=== PATIENT | female | born 1965 ===

== ENCOUNTER 2017-09-18 21:08 | Emergency (ER) | payer MEDICAID ==
[2017-09-18] MEDS ORDERED: Sodium Chloride 0.9% 1,000 ML IV STA (22:00)
--- NOTE | 2017-09-18 22:06 | ED PDOC ---
HPI: General Adult Time Seen by Provider: 09/18/17 21:17 Chief Complaint (Nursing): GI Problem Chief Complaint (Provider): dizziness, vomiting History Per: Patient History/Exam Limitations: no limitations Onset/Duration Of Symptoms: Hrs Current Symptoms Are (Timing): Still Present Additional History Per: Patient Additional Complaint(s): 51 y/o female presents with dizziness and vomiting x 1 day. Patient states she saw her GI doctor Dr. Thayer twice for left-sided abdominal pain>1 month and was found to have C. Diff and was started on Flagyl as of yesterday. Patient states she took 3 tablets yesterday and 2 today and felt the symptoms to be worsening. She was advised to stop medication by GI office and that a different one will be at her pharmacy in am. Denies fever, chest pain, shortness of breath, palpitations, changes in bowel movements, urinary symptoms. Past Medical History Reviewed: Historical Data, Nursing Documentation, Vital Signs Vital Signs: Last Vital Signs Temp 96.7 F L 09/18/17 21:10 Pulse 68 09/18/17 21:10 Resp 18 09/18/17 21:10 BP 151/65 H 09/18/17 21:10 Pulse Ox 100 09/18/17 23:55 - Medical History PMH: Anxiety, Diverticulitis, Gastritis - Surgical History Surgical History: - Family History Family History: States: Unknown Family Hx - Home Medications Home Medications: Ambulatory Orders Medication Instructions Recorded metroNIDAZOLE [Flagyl] 500 mg PO TID #30 tab 06/17/16 Alprazolam [Xanax] 09/18/17 Amitriptyline [Elavil] 10 mg PO 09/18/17 Lamotrigine [Lamictal] 200 mg PO DAILY 09/18/17 Linaclotide [Linzess] 145 mcg PO DAILY 09/18/17 Meloxicam [Mobic] 15 mg PO DAILY 09/18/17 Montelukast [Singulair] 10 mg PO DAILY 09/18/17 Omeprazole [Omeprazole] 20 mg PO PRN PRN 09/18/17 Zolpidem [Ambien] 10 mg PO DAILY 09/18/17 traZODone [trazodone Hydrochloride] 100 mg PO DAILY 09/18/17 Ondansetron ODT [Zofran ODT] 4 mg PO Q8 PRN #10 odt 09/19/17 - Allergies Allergies/Adverse Reactions: Allergies Allergy/AdvReac Type Severity Reaction Status Date / Time No Known Allergies Allergy Verified 06/17/16 12:11 Review of Systems ROS Statement: Except As Marked, All Systems Reviewed And Found Negative Gastrointestinal: Positive for: Nausea, Vomiting, Abdominal Pain Neurological: Positive for: Dizziness Physical Exam - Reviewed Nursing Documentation Reviewed: Yes Vital Signs Reviewed: Yes - Physical Exam Appears: Positive for: Well, Non-toxic, No Acute Distress Head Exam: Positive for: ATRAUMATIC, NORMAL INSPECTION, NORMOCEPHALIC Skin: Positive for: Normal Color Eye Exam: Positive for: Normal appearance ENT: Positive for: Normal ENT Inspection Cardiovascular/Chest: Positive for: Regular Rate, Rhythm Respiratory: Positive for: Normal Breath Sounds Gastrointestinal/Abdominal: Positive for: Normal Exam Back: Positive for: Normal Inspection Extremity: Positive for: Normal ROM Neurologic/Psych: Positive for: Alert, Oriented - Laboratory Results Result Diagrams: 09/18/17 22:31 09/18/17 22:31 - ECG ECG: Positive for: Viewed By Me (reviewed by ED attending) ECG Rhythm: Positive for: Sinus Rhythm O2 Sat by Pulse Oximetry: 100 - Progress ED Course And Treament: labs, ekg, urine, IV fluids, IV zofran On re-eval, patient still with slight nausea and now headache; IV reglan ordered 1:15 Patient states she is feeling better. Tolerating PO. Patient educated on findings ,discharged with rx zofran. Advised to discontinue flagyl. Start new antibiotic GI recommended. Return to ED for worsening/concerning symptoms. Disposition - Clinical Impression Clinical Impression: Nausea and vomiting, Adverse effects of medication - Patient ED Disposition Is Patient to be Admitted: No Counseled Patient/Family Regarding: Studies Performed, Diagnosis, Need For Followup, Rx Given - Disposition Disposition: Routine/Home Disposition Time: 01:27 Condition: IMPROVED Prescriptions: Ondansetron ODT [Zofran ODT] 4 mg PO Q8 PRN #10 odt PRN Reason: Nausea/Vomiting Instructions: Acute Nausea and Vomiting (ED) Forms: [employer] ([place]ian)
[2017-09-18 22:34] LABS: BASO % 0.5 % (0.0-2.0); EOS # 0.1 K/uL (0.0-0.7); EOS % 1.7 % (0.0-4.0); HEMATOCRIT 37.1 % (34.0-47.0); LYMPH % 30.9 % (20.0-40.0); MEAN CELL VOLUME 86.6 fl (81.0-99.0); MEAN CORPUSCULAR HEMOGLOBIN 28.4 pg (27.0-31.0); MEAN CORPUSCULAR HGB CONC 32.8 g/dL (33.0-37.0); MEAN PLATELET VOLUME 7.5 fl (7.2-11.7); MONO # 0.5 K/uL (0.0-0.8); MONO % 8.2 % (0.0-10.0); NEUT # 3.7 K/uL (1.8-7.0); NEUT % 58.7 % (50.0-75.0); NRBC % 0.1 % (0.0-0.0); RED CELL DISTRIBUTION WIDTH 14.7 % (11.5-14.5); WHITE BLOOD COUNT 6.3 K/uL (4.8-10.8)
[2017-09-18 22:41] LABS: RBC URINE 3 /hpf (0-3); URINE BACTERIA RARE (<OCC); URINE BILIRUBIN NEGATIVE (NEGATIVE); URINE BLOOD NEGATIVE (NEGATIVE); URINE COLOR YELLOW (YELLOW); URINE GLUCOSE (UA) NEG (Normal); URINE KETONE TRACE mg/dL (NEGATIVE); URINE LEUKOCYTE ESTERASE TRACE Leu/uL (Negative); URINE PROTEIN NEGATIVE (NEGATIVE); URINE UROBILINOGEN 0.2-1.0 mg/dL (0.2-1.0)
[2017-09-18 22:48] LABS: WBC URINE 6 /hpf (0-5)
[2017-09-18 22:52] LABS: ALB/GLOB RATIO 1.4 (1.0-2.1); ALKALINE PHOSPHATASE 80 U/L (38-126); ALT/SGPT 38 U/L (9-52); AST/SGOT 38 U/L (14-36); BILIRUBIN,TOTAL 0.3 mg/dl (0.2-1.3); BLOOD UREA NITROGEN 13 mg/dl (7-17); CALCIUM 9.8 mg/dL (8.4-10.2); CARBON DIOXIDE 27 mmol/L (22-30); CHLORIDE 104 mmol/L (98-107); GFR AFRICAN-AMERICAN > 60; GLUCOSE,RANDOM 108 mg/dL (65-105); POTASSIUM 3.7 MMOL/L (3.6-5.0); SODIUM 141 mmol/l (132-148); TOTAL PROTEIN 7.8 G/DL (6.3-8.2)
[2017-09-19 01:42] VITALS: BP 133/68; PULSE 76; RESP 14; TEMP 98.1; O2SAT 98
--- NOTE | 2017-09-20 18:03 | CARD ---
APPROVED REPORT EKG Measurement Heart [id number] <Conclusion> Normal sinus rhythm Normal ECG
== END 2017-09-19 01:42 | disposition home or self-care (01) ==
LOC: H.ER 21:08
DX: R11.2 Nausea with vomiting, unspecified (principal); R10.9 Unspecified abdominal pain; F41.9 Anxiety disorder, unspecified
CPT/HCPCS: 80053; 81003; 81025; 85025; 87086; 93005; 96361; 96374; 96375; 99283; J2405; J2765; J7040

== ENCOUNTER 2017-11-19 08:40 | Day surgery (SDC) | payer MEDICAID ==
[2017-11-19] MEDS ORDERED: Lactated Ringer's 500 ML IV ONE (10:14)
[2017-11-19] MEDS ORDERED: Lidocaine 2% MPF (5 ml) Inj ONE (11:38)
[2017-11-19] MEDS ORDERED: Propofol 10 mg/ml Inj (20 ML) ONE (11:38)
[2017-11-19 12:25] VITALS: PULSE 75; O2SAT 95
[2017-11-19 12:43] VITALS: BP 115/67; RESP 18; TEMP 97
== END 2017-11-19 13:40 | disposition home or self-care (01) ==
LOC: H.ENDO 08:40
PROVIDERS: ATTEND Internal Medicine Gastroenterology
DX: R10.84 Generalized abdominal pain (principal); K64.8 Other hemorrhoids; K57.30 Diverticulosis of large intestine without perforation or abscess without bleeding; K29.70 Gastritis, unspecified, without bleeding
CPT/HCPCS: 43239; 45378; 88305; J2704; J7120